=== PATIENT | male | born 1970 | race Caucasian/White ===

== ENCOUNTER 2017-10-10 07:09 | Emergency (ER) | END 2017-10-10 08:15 | disposition home or self-care (01) ==

== ENCOUNTER 2018-12-30 08:14 | Emergency (ER) | payer MEDICAID ==
[~2018-12-30] VITALS: Ht 162.6 cm; Wt 68.4 kg
[~2018-12-30 08:14] MED LIST: HYDR-3980 PO; IBUP800T48 PO; KETO5DRO71 OP; LEVO5TAB28 PO
[2018-12-30 08:21] VITALS: Ht 162.6 cm; Wt 68.4 kg
[2018-12-30] MEDS ORDERED: IBUPROFEN 600 MG TAB PO ONE (09:30)
--- NOTE | 2018-12-30 10:53 | ERD ---
ER Documentation Chief Complaint Chief Complaint Pt feeling dizzy and PERALTA since yesterday, nurologically intact, ambulatory HPI 48-year-old male presents to ED complaining of feeling dizzy and weakness x1 day. Patient denies any neurological deficits. Patient does state that he is feeling numbness and tingling down his arms bilaterally. He denies a cardiac history, shortness of breath or any past medical history. Patient states that he has never felt like this in the past. Patient denies any fevers. Patient denies any excessive school activity, chest pain. ROS All systems reviewed and are negative except as per history of present illness. Medications Home Meds Active Scripts Levocetirizine Dihydrochloride (Xyzal) 5 Mg Tablet, 5 MG PO QPM, #30 TAB Prov:CATRACHITO MARIN PA-C 10/10/17 Ketotifen Fumarate (ZADITOR) 5 Ml Drops, 5 ML OP BID, #1 BOTTLE Prov:CATRACHITO MARIN PA-C 10/10/17 Hydrocodone/Acetaminophen ([place] 10-325 Tablet) 1 Each Tablet, 1 TAB PO Q6H PRN for PAIN, #20 TAB Prov:DIMAS ESCALERASTELVIRAS A. DO 04/17/16 Ibuprofen* (Motrin*) 800 Mg Tab, 800 MG PO Q6H PRN for PAIN AND OR ELEVATED TEMP, #30 TAB Prov:LEDIMAS MILIANSTOLOS A. DO 04/17/16 Allergies Allergies: Coded Allergies: No Known Allergy (Unverified , 10/10/17) PMhx/Soc History of Surgery: No Anesthesia Reaction: No Hx Neurological Disorder: No Hx Respiratory Disorders: No Hx Cardiac Disorders: No Hx Psychiatric Problems: No Hx Miscellaneous Medical Probl: No Hx Alcohol Use: No Hx Substance Use: No Hx Tobacco Use: No Smoking Status: Never smoker FmHx Family History: No diabetes Physical Exam Vitals Vital Signs Date Temp Pulse Resp B/P (MAP) Pulse Ox O2 O2 Flow FiO2 Time Delivery Rate 12/30/18 48 17 111/61 99 Room Air 11:24 (78) 12/30/18 98.4 52 18 119/57 99 08:21 (77) Physical Exam Const: No acute distress Head: Atraumatic Eyes: Normal Conjunctiva ENT: Normal External Ears, Nose and Mouth. Neck: Full range of motion. No meningismus. Resp: Clear to auscultation bilaterally Cardio: Regular rate and rhythm, no murmurs Abd: Soft, non tender, non distended. Normal bowel sounds Skin: No petechiae or rashes Back: No midline or flank tenderness Ext: No cyanosis, or edema Neur: Awake and alert. Cranial nerves II through XII intact, no pronator drift, equal sensation bilaterally. Good strength all around 5 out of 5. Psych: Normal Mood and Affect Result Diagram: 12/30/1892312/30/18923 Results 24 hrs Laboratory Tests Test 12/30/18 09:24 12/30/18 09:57 White Blood Count 7.6 10^3/ul Red Blood Count 4.55 10^6/ul Hemoglobin 14.4 g/dl Hematocrit 41.6 % Mean Corpuscular Volume 91.4 fl Mean Corpuscular Hemoglobin 31.6 pg Mean Corpuscular Hemoglobin Concent 34.6 g/dl Red Cell Distribution Width 12.8 % Platelet Count 269 10^3/UL Mean Platelet Volume 9.5 fl Immature Granulocytes % 0.400 % Neutrophils % 77.6 % Lymphocytes % 12.3 % Monocytes % 7.9 % Eosinophils % 1.1 % Basophils % 0.7 % Nucleated Red Blood Cells % 0.0 /100WBC Immature Granulocytes # 0.030 10^3/ul Neutrophils # 5.9 10^3/ul Lymphocytes # 0.9 10^3/ul Monocytes # 0.6 10^3/ul Eosinophils # 0.1 10^3/ul Basophils # 0.1 10^3/ul Nucleated Red Blood Cells # 0.0 10^3/ul Sodium Level 142 mmol/L Potassium Level 4.4 mmol/L Chloride Level 105 mmol/L Carbon Dioxide Level 29 mmol/L Anion Gap 8 Blood Urea Nitrogen 19 mg/dl Creatinine 0.77 mg/dl Est Glomerular Filtrat Rate mL/min > 60 mL/min Glucose Level 116 mg/dl Calcium Level 9.0 mg/dl Troponin I < 0.012 ng/ml Current Medications Medications Dose Sig/Carmela Start Time Status Last (Trade) Ordered Route PRN Stop Time Admin Dose Reason Admin Ibuprofen 600 mg ONCE ONCE 12/30/18 DC 12/30/18 (Motrin) PO 09:30 12/30/18 09:24 09:31 Procedures/MDM ED COURSE: The patient was stable throughout ED course. I kept the patient informed of laboratory and diagnostic imaging results throughout the ED course. EKG: Read by Dr. Blake, attending physician. EKG shows sinus bradycardia rhythm at a rate of 43 No arrhythmias, acute ST elevations or T wave changes were noted. PROCEDURES: none MEDICATIONS GIVEN: Motrin Patient tolerated medication well with no adverse reactions. Patient reported improvement in pain. MEDICAL DECISION MAKING: Patient is a 48-year-old male complaining of dizziness and weakness x1 day. Patient on physical exam was unremarkable. Neurologic exam was intact and unremarkable. Patient reported weakness and bilateral arm pain so an EKG was done showing sinus bradycardia. After discussing with Dr. Blake, he recommended I order troponins which were negative. Patient denies use of any medications at this time. At this time I have low suspicion for acute coronary syndrome, [place], stroke, AAA, aortic dissection. Vital signs were reviewed. Patient is afebrile. Patient was not hypoxic. Patient was hemodynamically stable. Patient was told to follow up with primary care for further care and management. PRESCRIPTION: none DISCHARGE: At this time, patient is stable for discharge and outpatient management. I have instructed the patient to follow-up with his/her primary care physician in 1-2 days. I have discussed with the patient the possibility of needing to see a specialist for further workup and imaging studies if symptoms persist. I have instructed the patient to promptly return to the ER for any new or worsening symptoms including increased pain, fever, nausea, vomiting, weakness or LOC. The patient expressed understanding of and agreement with this plan. All questions were answered. Home care instructions were provided. Disclaimer: Inadvertent spelling and grammatical errors are likely due to EHR/dictation software use and do not reflect on the overall quality of patient care. Also, please note that the electronic time recorded on this note does not necessarily reflect the actual time of the patient encounter. Departure Diagnosis: Primary Impression: Sinus bradycardia Additional Impression: Weakness Condition: Fair Patient Instructions: Generalized Weakness Referrals: COMMUNITY CLINICS YOU HAVE RECEIVED A MEDICAL SCREENING EXAM AND THE RESULTS INDICATE THAT YOU DO NOT HAVE A CONDITION THAT REQUIRES URGENT TREATMENT IN THE EMERGENCY DEPARTMENT. FURTHER EVALUATION AND TREATMENT OF YOUR CONDITION CAN WAIT UNTIL YOU ARE SEEN IN YOUR DOCTORS OFFICE WITHIN THE NEXT 1-2 DAYS. IT IS YOUR RESPONSIBILITY TO MAKE AN APPOINTMENT FOR FOLOW-UP CARE. IF YOU HAVE A PRIMARY DOCTOR --you should call your primary doctor and schedule an appointment IF YOU DO NOT HAVE A PRIMARY DOCTOR YOU CAN CALL OUR PHYSICIAN REFERRAL HOTLINE AT IF YOU CAN NOT AFFORD TO SEE A PHYSICIAN YOU CAN CHOSE FROM THE FOLLOWING [facility] [address] [facility] [address] [facility] [address] [facility] [address] [facility] [address] [facility] [facility] [address] [facility]. [facility] YOU HAVE RECEIVED A MEDICAL SCREENING EXAM AND THE RESULTS INDICATE THAT YOU DO NOT HAVE A CONDITION THAT REQUIRES URGENT TREATMENT IN THE EMERGENCY DEPARTMENT. FURTHER EVALUATION AND TREATMENT OF YOUR CONDITION CAN WAIT UNTIL YOU ARE SEEN IN YOUR DOCTORS OFFICE WITHIN THE NEXT 1-2 DAYS. IT IS YOUR RESPONSIBILITY TO MAKE AN APPOINTMENT FOR FOLOW-UP CARE. IF YOU HAVE A PRIMARY DOCTOR --you should call your primary doctor and schedule and appointment IF YOU DO NOT HAVE A PRIMARY DOCTOR YOU CAN CALL OUR PHYSICIAN REFERRAL HOTLINE AT . IF YOU CAN NOT AFFORD TO SEE A PHYSICIAN YOU CAN CHOSE FROM THE FOLLOWING [facility]: [facility] [address] [place] [address] [facility] [address] [place] [address] [facility] [address] [place] [address] MELISSA SMITH PA-C Dec 30, 2018 10:53
[2018-12-30 11:24] VITALS: BP 111/61; PULSE 48; RESP 17
== END 2018-12-30 11:25 | disposition home or self-care (01) ==
LOC: FTE 08:14
DX: R00.1 Bradycardia, unspecified (principal); R53.1 Weakness
CPT/HCPCS: 36415; 80048; 84484; 85025; 93005; Z7502; Z7610